=== PATIENT | female | born 1940 | race Caucasian/White ===

== ENCOUNTER 2017-02-09 20:30 | Inpatient (IN) | payer OTHER ==
[~2017-02-09] VITALS: Ht 167.6 cm; Wt 96.6 kg
--- NOTE | ~2017-02-09 | EKG ---
[address] [address] ELECTROCARDIOGRAM REPORT Name: HEIDY SUN Room #: 242-P ADM IN M.R.#: [id number] Admission: 02/09/17 Attend Phys: Zeyad Church Discharge: Date of : 44 Report #: [id number] THIS REPORT FOR: //name// [facility] Test Date: 2017-02-10 Test Time: 13:10:57 Pat Name: HEIDY SUN Department: Room: 242 Gender: F Human Services Professional: king : 1940 Requested By: Zeyad Church Order Number: [id number] MD: Joselito Ramirez Measurements Intervals [place] Rate: 115 P: [place]: QRS: -16 QRSD: 89 T: 38 QT: 354 QTc: 490 Interpretive Statements Sinus with frequent PACs Electronically Signed On 02-10-2017 20:28:49 CDT by Joselito Ramirez [email or web address] <ELECTRONICALLY SIGNED> By: Joselito Ramirez MD 02/10/17 2028 1310 1310 Joselito Ramirez MD /HARRIET
--- NOTE | ~2017-02-09 | S ---
[facility] [place] [address] SURGICAL PATH RPT PROCEDURE Name: HEIDY SUN Room #: 307-P ADM IN M.R.#: [id number] Admission: 02/09/17 Date of : 44 Discharge: Report #: [id number] Path Case #: [id number] PATHOLOGY REPORT COLLECTION DATE: 02/10/2017 RECEIVED DATE: 02/11/2017 SUBMITTING PHYS: Dr. Timmy Vail OTHER PHYS: Dr. Zeyad Martínez SPECIMEN(S) RECEIVED: A.Peripheral smear * * * * * * * * * * * * FINAL DIAGNOSIS: Peripheral blood smear: - Mild normocytic anemia and mild leukocytosis/neutrophilia/bandemia. (see comment) COMMENT: Overall, the peripheral blood has mild normocytic anemia and mild leukocytosis/neutrophilia/bandemia. The platelet count is within the normal reference range. Red blood cells have a focal suggestion of possible rouleaux. The neutrophils are without significant dyspoiesis or significant left shift. The etiology of the findings is unclear based entirely on slide review. Potential causes of leukocytosis/neutrophilia include infections, drug reactions, smoking and less likely primary bone marrow disorders. Potential causes of normocytic anemia include anemia of chronic disease, treated and/or compensated vitamin and mineral deficiencies, acute blood loss, and dilutional. Correlation with clinical history and additional laboratory data is recommended. (CLW:; d/t: 02/11/17) PATHOLOGIST: Naty L. Charles, M.D. REPORT ELECTRONICALLY SIGNED BY: Naty Soto M.D. DATE/TIME: 02/11/2017 23:16 * * * * * * * * * * * * MICROSCOPIC DESCRIPTION: CBC Data (02/10/17): WBC 13,700 /uL, RBC 3.82, hemoglobin 11.4 g/dL, hematocrit 34.0%, MCV 89.0 fL, MCH 29.9 pg, MCHC 33.6 g/dL, RDW 13.7%. Platelet count 241,000 /uL. Manual white blood cell differential: segs 70%, bands 22%, lymphs 6%, monos 2%. Peripheral Blood Smear: Cytomorphological examination of the Rodriguez's stained peripheral blood smear confirms the provided data. Red blood cells show mild [facility] [address] [place] [address] SURGICAL PATH RPT PROCEDURE Name: HEIDY SUN Room #: 307-P ADM IN M.R.#: [id number] Admission: 02/09/17 Date of : 44 Discharge: Report #: [id number] Path Case #: [id number] normocytic anemia with no significant anisopoikilocytosis. There is a mild suggestion of possible rouleaux. White blood cells are mildly increased in number. They are predominantly segmented neutrophils with a mild bandemia. No significant dyspoiesis or significant left shift is identified. Rare lymphocytes are predominantly small, round, and mature appearing with condensed chromatin and scant cytoplasm with admixed large granular lymphocytes and reactive appearing lymphocytes. Monocytes are mature. Platelets are adequate in number and mainly normal in morphology with rare larger platelets noted. CLINICAL HISTORY: 76 year-old woman with leukocytosis and fever. Morphologic review of the peripheral blood smear is requested by the patient's physician. INITIAL CPT CODE(S): A; [place] Professional services performed by [facility] at [facility] [address], [place] [address] Technical services performed by [facility] at [address] [place] [address], [address], [place] [address]. [facility] [address] [place] [address] PHONE: [phone] DIRECTOR: Bo Okeefe M.D. * * * END OF REPORT * * *
--- NOTE | ~2017-02-09 | HC ---
[facility] [place] [address] CONSULTATION Name: HEIDY SUN Room #: 242-P ADM IN M.R.#: [id number] Admission: 02/09/17 Attend Phys: Crispin Roberson MD Discharge: Date of : 44 Report #: [id number] THIS REPORT FOR: //name// CC: Zeyad Macdonald REASON FOR CONSULTATION: I was asked to evaluate the patient concerning fever. HISTORY OF PRESENT ILLNESS: The patient was a 76-year-old very active individual who has had the acute onset of fever, chills, myalgias, arthralgias, headache, cough. She presented to the outpatient clinic where chest x-ray was clear. She was placed on doxycycline, but did not improve. Repeat study showed a white count went from 14,000 to 16,000. She has been hospitalized at [facility] on 02/08/2017. She was treated for suspected pneumonia, although her CT scan showed no acute pulmonary infiltrates. She did have a small pulmonary nodule on the left, treated with azithromycin and ceftriaxone. Continued on fever up to 103 degrees associated with chills and headache. Her cough has persisted. Intermittent nausea and emesis. No diarrhea, no dysuria or frequency. She has noticed some rash involving her upper extremities. No pharyngitis symptoms. Her D-dimer was elevated. A V/Q scan was negative for PE. Cardiac workup was negative for ischemia. Because of her persistent fever, she was transferred on 02/09/2017 to [facility] for further evaluation. She works in a office. 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 She has several grandchildren, they have been healthy. She has had no tick exposure. No travel outside the [place]. No recent vaccinations. No HIV risk factors, tuberculosis exposure. Prior to this, she has been reasonably healthy. No diabetes, coronary disease, arthritis. She did have a staphylococcal abscess to her neck approximately 2 years ago. ALLERGIES: None. MEDICATIONS: Now on vancomycin and ceftriaxone. PAST MEDICAL HISTORY: As noted above. FAMILY HISTORY: Noncontributory. SOCIAL HISTORY: As noted above. She is a past smoker. No significant alcohol intake. REVIEW OF SYSTEMS: Noted above. PHYSICAL EXAMINATION: VITAL SIGNS: Maximum temperature is 102.4 earlier, now 100 degrees; heart rate 120; respiratory rate 20; blood pressure 139/63. [facility] [address] [place] [address] CONSULTATION Name: HEIDY SUN Room #: 242-P [facility] IN .R.#: [id number] Admission: 02/09/17 Attend Phys: Crispin Roberson MD Discharge: Date of : 44 Report #: [id number] GENERAL: The patient was alert and cooperative. She appeared ill. HEENT: Some facial flushing. SKIN: She had erythema in streaks involving both arms, which were tender. She has several peripheral IVs in place. No adenopathy. No rash in any other part of her body. NECK: Supple. EYES: Unremarkable. MOUTH: Unremarkable. No thyromegaly. LUNGS: Clear, although on deep inspiration, the patient would cough, which was nonproductive. HEART: Regular. No murmur, gallop or rub. ABDOMEN: Soft, no hepatosplenomegaly or mass. Moderately obese. EXTREMITIES: Unremarkable. GENITAL AND RECTAL: Not performed. NEUROLOGIC: Normal. LABORATORY STUDIES: Outside CT scan showed no acute pulmonary infiltrates. She has small pulmonary nodule in the left. CT scan of the abdomen and pelvis without contrast was normal. Doppler her lower extremities were negative for DVT. Electrocardiogram unremarkable. Blood culture is negative so far. TSH normal. Sodium 121, potassium 4.1, bicarbonate 21, creatinine 1.2. Liver function test normal. Hemoglobin 11.4, white count 13.7, she had 24% bands, platelet count 241,000. Lactate 1.1. IMPRESSION AND RECOMMENDATIONS: A 76-year-old with now last seen 10 days. Notable leukocytosis with left shift with myalgias and arthralgias. Mild headache. Thus far, workup has been unremarkable. Would consider viral versus atypical bacterial infection such as tick borne process, less likely fungal etiology. Consider autoimmune connective tissue disorder. Doubt malignancy at this time. Recommend repeating cultures blood, urine and sputum. Check autoimmune workup, tick borne processes, viral serology workup. Echocardiogram, peripheral smear, CPK and chest x-ray. She will continue with doxycycline and ceftriaxone pending further laboratory results. <ELECTRONICALLY SIGNED> By: Timmy Vail MD 02/11/17 0807 1237 0224 Timmy Vail MD /nt
--- NOTE | ~2017-02-09 | 2DMMODE ---
[facility] [address] [facility] [email or web address] [address] 2 D/M-MODE ECHOCARDIOGRAM Name: HEIDY SUN Room #: 242-P [facility] IN .R.#: [id number] Admission: 02/09/17 Attend Phys: Crispin Roberson, Discharge: Date of : 44 Date of Service: 02/11/17 [facility] Report #: [id number] THIS REPORT FOR: //name// APPROVED REPORT Study performed: 02/11/2017 09:15:32 EXAM: Comprehensive 2D, Doppler, and color-flow Echocardiogram Patient Location: Out-Patient Room #: 242 Status: routine Other Information Study Quality: Adequate Indications Chest pain, tachycardia, elevated troponin, fever. 2D Dimensions RVDd: 33.60 mm LVEF(%): 51.72 (>50%) IVSd: 11.29 (7-11mm) LVOT Diam: 21.34 (18-24mm) LVDd: 46.28 mm PWd: 9.72 (7-11mm) Ascending Ao: 36.47 (22-36mm) LVDs: 34.06 (25-40mm) Aortic Root: 35.83 mm Harkins's LVEF: 51.72 % Volumes Left Atrial Volume (Systole) Single Plane 4CH: 44.05 mL Single Plane 2CH: 44.75 mL LA ESV Index: 24.00 mL/m2 Aortic Valve AoV Peak Lawrence.: 1.58 m/s AO Peak Gr.: 9.92 mmHg LVOT Max P.07 mmHg LVOT Max V: 1.23 m/s NERY Vmax: 2.80 cm2 Mitral Valve E/A Ratio: 0.8 MV Decel. Time: 218.93 ms MV E Max Lawrence.: 0.82 m/s MV A Lawrence.: 1.04 m/s MV PHT: 63.49 ms IVRT: 48.[address] [facility] [place] [address] 2 D/M-MODE ECHOCARDIOGRAM Name: HEIDY SUN Room #: 242-P [facility] IN .R.#: [id number] Admission: 02/09/17 Attend Phys: Crispin Roberson, Discharge: Date of : 44 Date of Service: 02/11/17 [facility] Report #: [id number] Pulmonary Valve PV Peak Lawrence.: 1.09 m/s PV Peak Gr.: 4.77 mmHg Pulmonary Vein P Vein S: 0.94 m/s P Vein A: 0.45 m/s P Vein D: 0.50 m/s P Vein A Dur.: 96.9 msec P Vein S/D Ratio: 1.88 Tricuspid Valve TR Peak Lawrence.: 2.60 m/s RAP Estimate: 5.00 mmHg TR Peak Gr.: 27.02 mmHg PA Pressure: 32.00 mmHg Left Ventricle The left ventricle is normal size. There is normal LV segmental wall motion. Mild basal septal hypertrophy is present. Left ventricular systolic function is normal. LVEF is 55%. Grade I - abnormal relaxation pattern. Right Ventricle The right ventricle is normal size. The right ventricular systolic function is normal. Atria The left atrium size is normal. The right atrium size is normal. Aortic Valve Aortic valve leaflets are mildly thickened. No aortic regurgitation is present. There is no aortic valvular stenosis. Mitral Valve Mitral valve leaflets are mildly thickened. Mild mitral annular calcification. Trace mitral regurgitation. No evidence of mitral valve stenosis. Tricuspid Valve The tricuspid valve is normal in structure. There is mild tricuspid regurgitation. The right atrial pressure is estimated at 5 mmHg. There is mild pulmonary hypertension with an estimated PAP of 32mmHg. Pulmonic Valve The pulmonary valve is normal in structure. Mild [place] [address] 2 D/M-MODE ECHOCARDIOGRAM Name: HEIDY SUN Room #: 242-P [facility] IN ..#: [id number] Admission: 02/09/17 Attend Phys: Crispin Roberson, Discharge: Date of : 44 Date of Service: 02/11/17 1038 Report #: [id number] Great Vessels The aortic root is normal in size. The ascending aorta is normal in size. IVC is normal in size and collapses >50% with inspiration. Pericardium There is no pericardial effusion. <Conclusion> The left ventricle is normal size. Left ventricular systolic function is normal. LVEF is 55%. Aortic valve leaflets are mildly thickened. Mitral valve leaflets are mildly thickened. Mild mitral annular calcification. Trace mitral regurgitation. The tricuspid valve is normal in structure. There is mild tricuspid regurgitation. The right atrial pressure is estimated at 5 mmHg. There is mild pulmonary hypertension with an estimated PAP of 32mmHg. The pulmonary valve is normal in structure. Mild pulmonic regurgitation. <ELECTRONICALLY SIGNED> By: Abdullahi Dickerson MD 02/11/17 1038 1038 1038 Abdullahi Dickerson MD /INF
[2017-02-09 21:40] VITALS: BP 131/60
[2017-02-09] MEDS ORDERED: ASPIR 8181 M1 PO (22:15)
[2017-02-10] VITALS (16 sets, daily range): BP systolic 114–148; BP diastolic 49–72
[2017-02-10 00:26] LABS: HEMATOCRIT 36.4 % (37.0-47.0); MCH 29.7 pg (26.0-34.0); PLATELET COUNT 257 thou/uL (150-400); RBC 4.04 mil/uL (4.20-5.00); RDW 13.4 % (10.5-14.5); WBC 14.3 thou/uL (4.0-11.0)
[2017-02-10 00:27] LABS: MANUAL DIFF YES
[2017-02-10 00:34] LABS: ANION GAP 13 mmol/L (7-16); BUN 19 mg/dL (7-18); CALCIUM 7.6 mg/dL (8.5-10.1); CHLORIDE 96 mmol/L (98-107); CO2 20 mmol/L (21-32); CREATININE 1.3 mg/dL (0.6-1.0); GLUCOSE 116 mg/dL (74-106); POTASSIUM 4.1 mmol/L (3.5-5.1); SODIUM 129 mmol/L (136-145)
[2017-02-10 00:39] LABS: ALBUMIN 2.3 g/dL (3.4-5.0); ALKALINE PHOSPHATASE 93 U/L (46-116); SGOT 29 U/L (15-37); SGPT 22 U/L (30-65); TOTAL BILIRUBIN 0.6 mg/dL (<0.1-1.0); TOTAL PROTEIN 5.7 g/dL (6.4-8.2); TROPONIN-I < 0.04 ng/mL (<0.04-0.07)
[2017-02-10 00:44] LABS: ABSOLUTE NEUTROPHILS 13.4 thou/uL (1.4-8.2); TOTAL CELL COUNT 100
[2017-02-10 07:01] LABS: HEMOGLOBIN 11.4 gm/dL (12.0-15.0); MCH 29.9 pg (26.0-34.0); MCHC 33.6 g/dL (28.0-37.0); PLATELET COUNT 241 thou/uL (150-400); RBC 3.82 mil/uL (4.20-5.00); RDW 13.7 % (10.5-14.5); WBC 13.7 thou/uL (4.0-11.0)
[2017-02-10 07:04] LABS: ANION GAP 10 mmol/L (7-16); BUN 20 mg/dL (7-18); CALCIUM 7.5 mg/dL (8.5-10.1); CHLORIDE 100 mmol/L (98-107); CO2 21 mmol/L (21-32); CREATININE 1.2 mg/dL (0.6-1.0); GLUCOSE 104 mg/dL (74-106); POTASSIUM 4.1 mmol/L (3.5-5.1); SODIUM 131 mmol/L (136-145)
[2017-02-10 07:11] LABS: ALBUMIN 1.9 g/dL (3.4-5.0); ALKALINE PHOSPHATASE 78 U/L (46-116); CHOLESTEROL 111 mg/dL (<200); HDL CHOLESTEROL 9 mg/dL (>40); LDL CHOLESTEROL 69 mg/dL (<100); SGOT 24 U/L (15-37); SGPT 17 U/L (30-65); TC:HDL 12.3 Ratio (Not establshd); TOTAL BILIRUBIN 0.5 mg/dL (<0.1-1.0); TOTAL PROTEIN 5.8 g/dL (6.4-8.2); TRIGLYCERIDE 168 mg/dL (<150); TROPONIN-I < 0.04 ng/mL (<0.04-0.07); VLDL 34 mg/dL (<40)
[2017-02-10 13:12] LABS: MANUAL DIFF YES
[2017-02-10 13:41] LABS: ABG SAMPLE TYPE ARTERIAL; BE(vivo) -3.1 mmol/L (-2 to +3); HCO3 18.7 mmol/L (22.0-26.0); LACTATE 1.17 mmol/L (0.5-2.0); O2(CT) 16.6 mL/dL (15.0-23.0); O2Hb 96.8 % (92.0-98.0); PO2 99.7 mmHg (80.0-100.0); pH 7.496 (7.360-7.450); sO2 98.1 % (92.0-98.0); tCO2 19.4 mmol/L (24.0-30.0)
[2017-02-10 13:42] LABS: PCO2 24.7 mmHg (35.0-45.0); STICK SITE R.RADIAL
[2017-02-10 14:28] LABS: ABSOLUTE NEUTROPHILS 12.6 thou/uL (1.4-8.2); TOTAL CELL COUNT 100
[2017-02-10 14:30] LABS: TOXIC GRANULATION 1+
[2017-02-10 15:08] LABS: APTT 39.4 Seconds (24.5-32.8); FIBRINOGEN 533.5 mg/dL (210-360)
[2017-02-10 15:15] LABS: TROPONIN-I < 0.04 ng/mL (<0.04-0.07)
[2017-02-10 15:19] LABS: CREATININE 1.3 mg/dL (0.6-1.0); POTASSIUM 3.8 mmol/L (3.5-5.1)
[2017-02-10 15:20] LABS: CALCIUM 7.2 mg/dL (8.5-10.1)
[2017-02-10 15:39] LABS: ABG SAMPLE TYPE VENOUS; BE(vivo) -6.2 mmol/L (-2 to +3); HCO3 17.3 mmol/L (22.0-26.0); LACTATE 0.81 mmol/L (0.5-2.0); O2(CT) 11.7 mL/dL (15.0-23.0); O2Hb VENOUS 75.6 (65.0-85.0); PCO2 VENOUS 27.8 mmHg (41.0-51.0); PO2 VENOUS 41.1 mmHg (35.0-45.0); sO2 VENOUS 78.1 % (65.0-85.0); tCO2 18.1 mmol/L (24.0-30.0)
[2017-02-10 15:40] LABS: STICK SITE LINE
[2017-02-10 15:41] LABS: URINE BILIRUBIN NEGATIVE (Negative); URINE BLOOD 2+ (Negative); URINE COLOR YELLOW; URINE GLUCOSE-RANDOM* NEGATIVE (Negative); URINE KETONES NEGATIVE (Negative); URINE NITRITE NEGATIVE (Negative); URINE PROTEIN (DIPSTICK) TRACE (Negative); URINE UROBILINOGEN 0.2 E.U./dl (0.2-1.0)
[2017-02-10 15:57] LABS: AMORPHOUS URATES Moderate /LPF (None Seen); CASTS None Seen /LPF (None Seen); CRYSTALS None Seen /LPF (None Seen); SQUAMOUS None Seen /LPF (0-3)
[2017-02-10 15:58] LABS: URINE RBC 0-2 Rare /HPF (0-2); URINE WBC 0-5 Rare /HPF (0-5)
[2017-02-10 16:01] LABS: BACTERIA None Seen /HPF (None Seen)
[2017-02-10 16:38] LABS: ABG SAMPLE TYPE VENOUS; BE(vivo) -6.4 mmol/L (-2 to +3); HCO3 17.4 mmol/L (22.0-26.0); O2(CT) 12.1 mL/dL (15.0-23.0); O2Hb VENOUS 75.2 (65.0-85.0); PCO2 VENOUS 29.3 mmHg (41.0-51.0); PO2 VENOUS 40.8 mmHg (35.0-45.0); STICK SITE LINE; sO2 VENOUS 76.6 % (65.0-85.0); tCO2 18.3 mmol/L (24.0-30.0)
[2017-02-10 17:36] LABS: ABG SAMPLE TYPE VENOUS; BE(vivo) -6.5 mmol/L (-2 to +3); HCO3 17.5 mmol/L (22.0-26.0); LACTATE 0.93 mmol/L (0.5-2.0); O2(CT) 11.3 mL/dL (15.0-23.0); O2Hb VENOUS 70.3 (65.0-85.0); PCO2 VENOUS 30.1 mmHg (41.0-51.0); PO2 VENOUS 37.1 mmHg (35.0-45.0); STICK SITE PICC; sO2 VENOUS 70.7 % (65.0-85.0); tCO2 18.4 mmol/L (24.0-30.0)
[2017-02-10 17:37] LABS: ABG COMMENT NO COMPLICATIONS.
[2017-02-10 18:07] LABS: CALCIUM 7.2 mg/dL (8.5-10.1); CREATININE 1.1 mg/dL (0.6-1.0); POTASSIUM 3.8 mmol/L (3.5-5.1)
[2017-02-10 20:11] LABS: BE(vivo) -5.7 mmol/L (-2 to +3); HCO3 18.2 mmol/L (22.0-26.0); LACTATE 1.22 mmol/L (0.5-2.0); PCO2 VENOUS 31.4 mmHg (41.0-51.0); PO2 VENOUS 41.9 mmHg (35.0-45.0); sO2 VENOUS 77.3 % (65.0-85.0); tCO2 19.2 mmol/L (24.0-30.0)
[2017-02-10 20:12] LABS: ABG SAMPLE TYPE VENOUS; STICK SITE LINE
[2017-02-10 21:31] LABS: ABG COMMENT NO COMPLICATIONS.; ABG SAMPLE TYPE VENOUS; BE(vivo) -4.4 mmol/L (-2 to +3); HCO3 19.3 mmol/L (22.0-26.0); LACTATE 1.17 mmol/L (0.5-2.0); O2(CT) 11.5 mL/dL (15.0-23.0); O2Hb VENOUS 70.6 (65.0-85.0); PCO2 VENOUS 31.1 mmHg (41.0-51.0); PO2 VENOUS 36.8 mmHg (35.0-45.0); STICK SITE PICC; sO2 VENOUS 71.8 % (65.0-85.0); tCO2 20.3 mmol/L (24.0-30.0)
[2017-02-10 21:49] LABS: CALCIUM 7.3 mg/dL (8.5-10.1)
[2017-02-11] VITALS (19 sets, daily range): BP systolic 95–158; BP diastolic 46–86
[2017-02-11 05:14] LABS: CALCIUM 7.5 mg/dL (8.5-10.1); CREATININE 0.9 mg/dL (0.6-1.0); TROPONIN-I 0.06 ng/mL (<0.04-0.07)
[2017-02-11 10:02] LABS: HEMATOCRIT 30.8 % (37.0-47.0); HEMOGLOBIN 10.2 gm/dL (12.0-15.0); MANUAL DIFF YES; MCH 29.6 pg (26.0-34.0); MCHC 33.1 g/dL (28.0-37.0); MCV 89.4 fL (80.0-100.0); PLATELET COUNT 216 thou/uL (150-400); RBC 3.45 mil/uL (4.20-5.00); RDW 14.3 % (10.5-14.5); WBC 13.2 thou/uL (4.0-11.0)
[2017-02-11 11:24] LABS: ABSOLUTE NEUTROPHILS 11.6 thou/uL (1.4-8.2); PLATELET ESTIMATE NORMAL; TOTAL CELL COUNT 100
[2017-02-11 13:09] LABS: HIV ANTIBODY Non Reactive (Non Reactive)
[2017-02-11 21:07] LABS: LYME ANTIBODY SCREEN* <0.91 ISR (0.00-0.90)
[2017-02-12 00:35] VITALS: BP 149/70
[2017-02-12 04:20] VITALS: BP 172/93
[2017-02-12 06:24] LABS: CALCIUM 7.9 mg/dL (8.5-10.1); CREATININE 0.7 mg/dL (0.6-1.0); POTASSIUM 3.6 mmol/L (3.5-5.1)
[2017-02-12 08:27] VITALS: BP 186/98
[2017-02-12 15:10] LABS: ANTI-VCA/IgM <36.0 U/mL (0.0-35.9)
[2017-02-12 16:27] VITALS: BP 184/98
[2017-02-12 19:30] VITALS: BP 165/76
[2017-02-12 21:10] LABS: ROCKY MTN SPOT FEVER IgG Negative (Negative)
[2017-02-13 00:06] LABS: ROCKY MTN SPOT FEVER IgM 0.18 index (0.00-0.89)
[2017-02-13 04:20] VITALS: BP 159/71
[2017-02-13 07:10] LABS: HEMATOCRIT 30.3 % (37.0-47.0); HEMOGLOBIN 10.1 gm/dL (12.0-15.0); MCH 29.9 pg (26.0-34.0); MCHC 33.2 g/dL (28.0-37.0); MCV 90.2 fL (80.0-100.0); RBC 3.36 mil/uL (4.20-5.00); RDW 14.1 % (10.5-14.5); WBC 9.1 thou/uL (4.0-11.0)
[2017-02-13 07:19] LABS: MANUAL DIFF YES; PLATELET COUNT 338 thou/uL (150-400)
[2017-02-13 08:02] LABS: ABSOLUTE NEUTROPHILS 5.6 thou/uL (1.4-8.2); METAMYELOCYTES 1 %; PLATELET ESTIMATE NORMAL; TOTAL CELL COUNT 100
[2017-02-13 08:09] VITALS: BP 197/89
[2017-02-13 11:10] LABS: EBV EARLY ANTIGEN <9.0 U/mL (0.0-8.9)
[2017-02-13 11:26] VITALS: BP 173/90
[2017-02-13 15:07] LABS: COXSACKIE A16 IGM Negative titer (Neg:<1:10); COXSACKIE A24 IGM Negative titer (Neg:<1:10); COXSACKIE A7 IGM Negative titer (Neg:<1:10); COXSACKIE A9 IGM Negative titer (Neg:<1:10)
[2017-02-13 15:20] VITALS: BP 171/82
[2017-02-13 16:09] LABS: EHRLICHIA AB (HGE) Negative (Neg:<1:64); EHRLICHIA AB (HME) Negative (Neg:<1:20)
[2017-02-13 18:06] LABS: COXSACKIE B-3 AB Negative (Neg:<1:8); COXSACKIE B-4 AB Negative (Neg:<1:8); COXSACKIE B-5 AB 1:16 (Neg:<1:8); HISTOPLASMA MYCELIAL-ID Negative (Negative)
[2017-02-13 19:15] VITALS: BP 179/84
[2017-02-14 03:53] VITALS: BP 176/83
[2017-02-14 05:59] LABS: HEMATOCRIT 26.4 % (37.0-47.0); MCH 30.3 pg (26.0-34.0); MCV 89.2 fL (80.0-100.0); RBC 2.96 mil/uL (4.20-5.00); RDW 13.8 % (10.5-14.5)
[2017-02-14 06:22] LABS: CALCIUM 8.3 mg/dL (8.5-10.1); CREATININE 0.6 mg/dL (0.6-1.0); POTASSIUM 3.4 mmol/L (3.5-5.1)
[2017-02-14 08:00] VITALS: BP 174/97
[2017-02-14] MEDS ORDERED: TOPROL XL100 MG PO (13:22)
[2017-02-14] MEDS ORDERED: PROTONIX40 M1 PO (13:23)
[2017-02-14] MEDS ORDERED: DOXYCYCLINE 10100 MG PO (13:24)
[2017-02-14 13:39] VITALS: BP 174/97
[2017-02-14 16:13] LABS: c-ANCA <1:20 titer (Neg:<1:20); p-ANCA <1:20 titer (Neg:<1:20)
[2017-02-14 21:08] LABS: HISTOPLASMA MYCELIAL-CF Negative (Neg:<1:2); HISTOPLASMA YEAST BY CF Negative (Neg:<1:2)
[2017-02-15 02:07] LABS: COMPLEMENT, TOTAL (CH50) > 60 U/mL (42-60)
[2017-02-15 09:13] LABS: A/G RATIO 0.7 (0.7-1.7); ALBUMIN 1.6 g/dL (2.9-4.4); ALPHA 1 0.3 g/dL (0.0-0.4); ALPHA 2 0.8 g/dL (0.4-1.0); BETA 0.7 g/dL (0.7-1.3); GAMMA 0.6 g/dL (0.4-1.8); M-SPIKE Not Observed g/dL (Not Observed)
[2017-02-15 23:11] LABS: INFLUENZA B Negative (Negative); METAPNEUMOVIRUS Negative (Negative)
== END 2017-02-14 15:01 | disposition home health service (06) | DRG 871 ==
LOC: 4S 20:30 → ICU 21:34 → 4S 21:34 → 2N 02-10 11:30 → ICU 02-10 13:25 → 3N 02-11 18:25
PROVIDERS: Hospitalist; Internal Medicine; Internal Medicine Rheumatology; Nurse Practitioner Family; Specialist
PROC: 02HV33Z Insertion of Infusion Device into Superior Vena Cava, Percutaneous Approach (ICD-10-PCS; principal; 2017-02-10)
DX: A41.9 Sepsis, unspecified organism (principal); E43 Unspecified severe protein-calorie malnutrition; N17.9 Acute kidney failure, unspecified; E87.1 Hypo-osmolality and hyponatremia; M25.50 Pain in unspecified joint; R00.0 Tachycardia, unspecified; I10 Essential (primary) hypertension; Z79.82 Long term (current) use of aspirin; Z68.34 Body mass index [BMI] 34.0-34.9, adult; Z79.899 Other long term (current) drug therapy; Z87.891 Personal history of nicotine dependence
CPT/HCPCS: 10078; 10100; 10795; 27000